=== PATIENT | female | born 1960 | race Caucasian/White ===

== ENCOUNTER 2017-12-24 06:24 | Day surgery (SDC) | payer BC ==
[2017-12-17 16:02] VITALS: BMI 20.5
[2017-12-24] MEDS ORDERED: CEFAZOLIN/Water 2 GM/20 ML SYRINGE ONE ×2 (07:04→11:58)
[2017-12-24] MEDS ORDERED: Midazolam HCl 2 mg/2 ml Vial ONE (07:30)
[2017-12-24] MEDS ORDERED: Thrombin 5000 UNITS/5 ML VIAL ONE (07:32)
[2017-12-24] MEDS ORDERED: Famotidine/PF 20 mg/2ml Vial ONE (07:40)
[2017-12-24] MEDS ORDERED: Scopolamine 1.5 mg/72 hour Patch ONE (07:40)
[2017-12-24] MEDS ORDERED: Promethazine HCl 25 MG/ML VIAL ONE (07:50)
[2017-12-24 07:56] LABS: #Eosinphils 0.1 thou/uL (0.0-0.7); #Lymphocytes 1.6 thou/uL (1.20-3.40); #Monocytes 0.3 thou/uL (0.11-0.59); #Neutrophils 4.5 thou/uL (1.40-6.50); %Basophils 0.7 % (0.0-1.0); %Eosinophils 1.6 % (0.0-10.0); %Lymphocytes 24.6 % (21.0-51.0); %Monocytes 4.7 % (0.0-10.0); %Neutrophils 68.5 % (42.0-75.0); Hemoglobin 13.9 g/dL (12.0-16.0); Mean Corpuscular HGB CONC 33.9 g/dL (32.0-36.0); Mean Corpuscular Hemoglobin 31.9 pg (27.0-31.0); Mean Platelet Volume 6.9 fL (7.4-10.4); Platelet Count 241 thou/uL (130-400); RBC Distribution Width 11.2 % (11.5-14.5); Red Blood Cell (RBC) Count 4.35 mill/uL (4.20-5.40); White Blood Cell (WBC) Count 6.6 thou/uL (4.8-10.8)
[2017-12-24] MEDS ORDERED: Fentanyl 100 MCG/2 ML VIAL ONE ×2 (08:10→09:38)
[2017-12-24 08:13] LABS: Anion Gap 11 mmol/L (10-20); BUN (Urea Nitrogen) 15 mg/dL (9.8-20.1); Calc. Creatinine Clearance 68 mL/min (70-130); Calcium 9.3 mg/dL (7.8-10.44); Carbon Dioxide 27 mmol/L (22-29); Chloride 103 mmol/L (98-107); Estimated GFR-MDRD 77; Glucose 92 mg/dL (70-105); Potassium 3.9 mmol/L (3.5-5.1); Sodium 137 mmol/L (136-145)
--- NOTE | 2017-12-24 09:33 | OP ---
DATE OF PROCEDURE: 12/24/2017 SURGEON: Laz Rivera M.D. [employer] ASSEMBLER: Micheal Fleming PA-C INDICATION: Pain. DIAGNOSIS: Cervical spondylolisthesis with cervical radiculopathy. PROCEDURE: Anterior cervical discectomy and fusion C4-C5. ANESTHESIA: General. PROCEDURE IN DETAIL: The patient was brought into the operating room and placed under general anesth esia. She was placed on the table in a supine position. A transverse incision was planned over the lateral aspect of the neck on the right. After prepping and draping and after an appropriate operati ve pause, the incision was created. The underlying platysma muscle was identified and incised. A bl unt tissue plane anterior to the sternocleidomastoid muscle was used to gain access to the prevertebr al space. Self-retaining retractors were then placed in the wound for optimal exposure. After confi rming the appropriate level, C-arm fluoroscopy, an annulotomy was performed in the C4-5 disk space. All disk material as well as anterior and posterior osteophytes were removed. After complete decompr ession, a 6 mm lordotic PEEK cage packed with allograft and autograft material was placed within the interbody space. An anterior cervical plate was then fashioned to the front of the spine and secured with a total of 4 fixed screws. Midline and lateral structures were inspected and found to be free from significant trauma. The wound was irrigated. Hemostasis was maintained throughout. The wound was then closed in anatomic layers and a pressure dressing was applied. There were no known procedur al complications.
[2017-12-24] MEDS ORDERED: Promethazine HCl 25 MG/ML VIAL IM/IV PRN (10:00)
[2017-12-24] MEDS ORDERED: Ondansetron HCl/PF 4 MG/2 ML Vial IVP PRN (10:00)
[2017-12-24] MEDS ORDERED: HYDROcodone/Acetaminophen 5/325 mg Tablet ONE (11:58)
[2017-12-24] MEDS ORDERED: Non-Formulary Medication 1 EACH PO PRN (12:11)
--- NOTE | 2017-12-24 15:27 | EKG ---
Test Reason : PREOP Blood Pressure : / mmHG Vent. Rate : 064 BPM Atrial Rate : 064 BPM P-R Int : 136 ms QRS Dur : 088 ms QT Int : 418 ms P-R-T Axes : 066 053 038 degrees QTc Int : 431 ms Normal sinus rhythm Normal ECG Confirmed by TAE LE ([id number]) on 12/24/2017 3:27:36 PM Referred By: BREE Confirmed By:TAE LE
== END 2017-12-24 12:43 | disposition home or self-care (01) ==
LOC: SDC 06:24
PROVIDERS: ATTEND Neurological Surgery
PROC: 0RG10A0 Fusion of Cervical Vertebral Joint with Interbody Fusion Device, Anterior Approach, Anterior Column, Open Approach (ICD-10-PCS; principal; 2017-12-24)
PROC: 0RT30ZZ Resection of Cervical Vertebral Disc, Open Approach (ICD-10-PCS; principal; 2017-12-24)
DX: M43.12 Spondylolisthesis, cervical region (principal); M54.12 Radiculopathy, cervical region; M25.78 Osteophyte, vertebrae; K21.9 Gastro-esophageal reflux disease without esophagitis; Z79.891 Long term (current) use of opiate analgesic; Z79.899 Other long term (current) drug therapy; Z88.5 Allergy status to narcotic agent; Z88.8 Allergy status to other drugs, medicaments and biological substances; Z91.048 Other nonmedicinal substance allergy status; Z96.89 Presence of other specified functional implants; Z90.49 Acquired absence of other specified parts of digestive tract; Z90.710 Acquired absence of both cervix and uterus; Z90.13 Acquired absence of bilateral breasts and nipples; Z98.890 Other specified postprocedural states; Z85.9 Personal history of malignant neoplasm, unspecified
CPT/HCPCS: 36415; 76001; 80048; 85025; 93005; 93010; 96374; C1713; C1776; J0131; J2250; J2270; J2550; J3010; S0028

== ENCOUNTER 2018-02-14 14:03 | Outpatient (CLI) | payer BC ==
--- NOTE | 2018-02-14 14:58 | RAD ---
CERVICAL SPINE THREE VIEWS: History: Follow up neck surgery. Status post six weeks. Comparison: 05-04-16 FINDINGS: Three views cervical spine. There is an anterior fusion plate with transvertebral body screw at C4-5. There is a disc prosthesis. There is anterolisthesis of C4 upon C5 approximately 2 mm. No perihardwa re lucency. There is stable degenerative change at C5-6 and C6-7. There is no prevertebral soft tissu e swelling. Predental space is normal. On the AP projection, there are degenerative changes of the fa cets. Limited evaluation of the odontoid process. IMPRESSION: Cervical fusion hardware. Persistent grade I anterolisthesis of C4 upon C5. POS: [facility]
== END 2018-02-14 14:04 | disposition home or self-care (01) ==
LOC: TBSIIMAG 14:03
PROVIDERS: ATTEND Neurological Surgery
DX: M54.12 Radiculopathy, cervical region (principal); M43.12 Spondylolisthesis, cervical region; Z98.1 Arthrodesis status
CPT/HCPCS: 72040

== ENCOUNTER 2018-07-09 10:00 | Outpatient (CLI) | payer BC ==
--- NOTE | 2018-07-10 10:32 | RAD ---
MODIFIED BARIUM SWALLOW WITH SPEECH THERAPIST: HISTORY: Pharyngeal phase dysphagia. Hoarseness. Dysphagia, unspecified. FINDINGS/IMPRESSION: A modified barium swallow was performed by the speech therapist. Penetration was seen with thin liqu ids. No aspiration was seen during the examination. Please see dedicated speech therapy report for specific findings and recommendations. POS: [facility]
== END 2018-07-09 10:01 | disposition home or self-care (01) ==
PROVIDERS: ATTEND Otolaryngology Plastic Surgery within the Head & Neck
DX: R13.13 Dysphagia, pharyngeal phase (principal); R49.0 Dysphonia; Z98.890 Other specified postprocedural states
CPT/HCPCS: 74230; G8996-GN-CI; G8997-GN-CI; G8998-GN-CI